=== PATIENT | female | born 1950 | race Caucasian/White ===

== ENCOUNTER 2024-03-22 07:52 | Emergency (ER) | payer OTHER ==
[~2024-03-22] VITALS: Ht 157.5 cm; Wt 68.0 kg
[2024-03-22 08:32] LABS: Hematocrit 35.9 % (33.0-51.0); Hemoglobin 11.3 g/dL (11.5-16.0); Mean Corpuscular HGB 25.7 pg (26.0-34.0); Mean Corpuscular HGB Conc 31.5 g/dL (31.5-36.5); Mean Corpuscular Volume 82 fL (80-100); Mean Platelet Volume 9.8 fL (9.1-12.4); Platelet Count 292 K/mm3 (150-400); RDW Coefficient Variation 16.4 % (11.7-14.2); RDW Standard Deviation 48.5 fL (35.1-46.3); White Blood Cell Count 15.54 K/mm3 (4.00-11.30)
[2024-03-22] MEDS ORDERED: NS 1,000 ML IV SCH (08:45)
[2024-03-22 08:49] LABS: Base Excess Venous 0.6 mmol/L; Bicarbonate Venous 25.4 mmol/L (24.0-30.0); PCO2 Venous 32.4 mmHg (38-42); pH Blood Venous 7.48 (7.34-7.37)
[2024-03-22 08:56] LABS: Albumin, Blood 2.9 g/dL (3.4-5.0); Albumin/Globulin Ratio 0.9 (0.8-1.8); Bilirubin, Total 0.3 mg/dL (0.1-1.0); Bun/Creatinine Ratio 47.4 (12.0-20.0); Creatinine, Blood 0.78 mg/dL (0.40-1.00); Globulin, Blood 3.3 g/dL (2.2-4.0); Magnesium, Blood 2.1 mg/dL (1.6-2.4); Potassium, Blood 3.8 mmol/L (3.5-5.5); Total Protein, Blood 6.2 g/dL (6.4-8.2)
[2024-03-22 08:57] LABS: BASOPHILS PERCENT MAN 0 % (0-2); EOSINOPHILS PERCENT MAN 0 % (0-6); LYMPHOCYTES ABSOLUTE MAN 2.79 K/mm3 (0.84-5.20); LYMPHOCYTES PERCENT MAN 18 % (21-46); METAMYELOCYTE ABSOLUTE MAN 0.31 K/mm3 (0.00-0.00); METAMYELOCYTE PERCENT MAN 2 % (0-0); MONOCYTES ABSOLUTE MAN 0.62 K/mm3 (0.16-1.47); MONOCYTES PERCENT MAN 4 % (4-13); MYELOCYTE ABSOLUTE MAN 0.31 K/mm3 (0.00-0.00); MYELOCYTE PERCENT MAN 2 % (0-0); NEUTROPHILS ABSOLUTE MAN 11.49 K/mm3 (1.96-9.15); SEG NEUTROPHILS PERCENT MAN 74 % (41-73); TOTAL CELLS COUNTED 100
[2024-03-22 09:25] LABS: Influenza A, PCR NEGATIVE (NEGATIVE); Influenza B, PCR NEGATIVE (NEGATIVE); Resp Syncytial Virus, PCR NEGATIVE (NEGATIVE); SARS-Cov-2 (COVID-19) PCR, MMC NEGATIVE (NEGATIVE)
[2024-03-22] MEDS ORDERED: MethylPREDNISolone Sod Succ 125 MG Vial IV ONE (10:15)
[2024-03-22] MEDS ORDERED: Azithromycin 250 MG Tab PO ONE (10:15)
[2024-03-22] MEDS ORDERED: PRED20 PO (10:23)
[2024-03-22] MEDS ORDERED: ALBU90OI INH (10:23)
[2024-03-22] MEDS ORDERED: AZIT250 PO (10:23)
== END 2024-03-22 15:22 | disposition home or self-care (01) ==
LOC: ER 07:52
PROVIDERS: Emergency Medicine
DX: J44.1 Chronic obstructive pulmonary disease with (acute) exacerbation (principal); J18.9 Pneumonia, unspecified organism
CPT/HCPCS: 0241U; 71046; 80053; 82803; 83735; 83880; 84484; 85025; 85379; 93005; 93010; 96361; 96374; 99285-25; A9270; J2919; J7030

== ENCOUNTER 2024-03-23 10:57 | Emergency (ER) | payer OTHER ==
[~2024-03-23] VITALS: Ht 165.1 cm; Wt 90.7 kg
[~2024-03-23 10:57] MED LIST: ALBU90OI INH; AZIT250 PO; PRED20 PO
[2024-03-24] MEDS ORDERED: Ipratropium/Albuterol SulF 2.5-0.5MG/3 ML Amp INH ONE (07:15)
[2024-03-24] MEDS ORDERED: PredniSONE 20 MG Tab PO ONE (08:10)
[2024-03-24] MEDS ORDERED: Azithromycin 250 MG Tab PO ONE (08:10)
[2024-03-24] MEDS ORDERED: ALBU90OI INH (09:52)
[2024-03-24] MEDS ORDERED: PRED20 PO (09:52)
[2024-03-24] MEDS ORDERED: AZIT250 PO (09:52)
[2024-05-20] MEDS ORDERED: NYSTATIN15 GM TOP (03:26)
[2024-05-20] MEDS ORDERED: SERT50 PO (03:34)
[2024-05-20] MEDS ORDERED: PROP10 PO (03:34)
[2024-05-20] MEDS ORDERED: PRED5 PO (03:34)
[2024-05-20] MEDS ORDERED: TRELEGY ELLIPT1 EACH INH (03:35)
[2024-05-20] MEDS ORDERED: ACET325 PO (03:35)
[2024-05-20] MEDS ORDERED: ATOR40TA PO (03:39)
[2024-05-20] MEDS ORDERED: LOSA25 PO (03:40)
[2024-05-20] MEDS ORDERED: MEMA5TAB PO (03:40)
[2024-05-20] MEDS ORDERED: METO25ER PO (03:41)
[2024-05-20] MEDS ORDERED: PANT40 PO (03:42)
[2024-05-20] MEDS ORDERED: FLUTICASONE-SAL12 GM PO (17:20)
[2024-05-21] MEDS ORDERED: IMODIUM A-D2 M1 PO (01:01)
[2024-05-21] MEDS ORDERED: ALBU90OI INH (01:02)
[2024-05-22] MEDS ORDERED: HYDRA25 PO (12:29)
== END 2024-03-24 14:22 | disposition home or self-care (01) ==
LOC: ER 10:57
DX: J44.1 Chronic obstructive pulmonary disease with (acute) exacerbation (principal); Z59.00 Homelessness unspecified; Z79.899 Other long term (current) drug therapy; Z79.52 Long term (current) use of systemic steroids
CPT/HCPCS: 94640; 94664; 99285-25; A9270; J7512

== ENCOUNTER 2024-05-20 03:07 | Observation (INO) | payer MEDICARE, OTHER ==
[~2024-05-20] VITALS: Ht 157.5 cm; Wt 75.0 kg
[2024-05-20] MEDS ORDERED: NYSTATIN15 GM TOP ×2 (03:26)
[2024-05-20 03:27] LABS: BASOPHILS ABSOLUTE AUTO 0.05 K/mm3 (0.00-0.23); BASOPHILS PERCENT AUTO 1 % (0-2); EOSINOPHILS ABSOLUTE AUTO 0.54 K/mm3 (0.00-0.68); EOSINOPHILS PERCENT AUTO 7 % (0-6); Hematocrit 37.5 % (33.0-51.0); Hemoglobin 11.6 g/dL (11.5-16.0); IMMATURE GRAN ABSOLUTE AUTO 0.02 K/mm3 (0.00-0.10); IMMATURE GRAN PERCENT AUTO 0 % (0-1); LYMPHOCYTES ABSOLUTE AUTO 2.66 K/mm3 (0.84-5.20); LYMPHOCYTES PERCENT AUTO 34 % (21-46); MONOCYTES ABSOLUTE AUTO 0.79 K/mm3 (0.16-1.47); MONOCYTES PERCENT AUTO 10 % (4-13); Mean Corpuscular HGB 25.2 pg (26.0-34.0); Mean Corpuscular HGB Conc 30.9 g/dL (31.5-36.5); Mean Corpuscular Volume 82 fL (80-100); Mean Platelet Volume 9.5 fL (9.1-12.4); NEUTROPHILS ABSOLUTE AUTO 3.85 K/mm3 (1.96-9.15); NEUTROPHILS PERCENT AUTO 49 % (41-73); Platelet Count 296 K/mm3 (150-400); RDW Coefficient Variation 15.3 % (11.7-14.2); RDW Standard Deviation 45.5 fL (35.1-46.3); White Blood Cell Count 7.91 K/mm3 (4.00-11.30)
[2024-05-20] MEDS ORDERED: ONELAX10 MG PR (03:29)
[2024-05-20] MEDS ORDERED: Fleet Enema132 ML PR (03:31)
[2024-05-20] MEDS ORDERED: DIAPER RASH TOP (03:31)
[2024-05-20] MEDS ORDERED: GUAI600T33 PO (03:32)
[2024-05-20] MEDS ORDERED: DULCOLAX400 MG/5 M (03:33)
[2024-05-20] MEDS ORDERED: LOPE2C (03:33)
[2024-05-20] MEDS ORDERED: PROP10 PO ×2 (03:34)
[2024-05-20] MEDS ORDERED: PRED5 PO ×2 (03:34)
[2024-05-20] MEDS ORDERED: SERT50 PO ×2 (03:34)
[2024-05-20] MEDS ORDERED: ACET325 PO ×2 (03:35)
[2024-05-20] MEDS ORDERED: TRELEGY ELLIPT1 EACH INH ×2 (03:35)
[2024-05-20] MEDS ORDERED: ALMACONE SUSPE355 ML (03:37)
[2024-05-20] MEDS ORDERED: ATOR40TA PO ×2 (03:39)
[2024-05-20] MEDS ORDERED: MEMA5TAB PO ×2 (03:40)
[2024-05-20] MEDS ORDERED: LOSA25 PO ×2 (03:40)
[2024-05-20] MEDS ORDERED: HYDPAM25 PO (03:40)
[2024-05-20] MEDS ORDERED: METO25ER PO ×2 (03:41)
[2024-05-20] MEDS ORDERED: Nicoderm Cq1 EAC1 TOP (03:41)
[2024-05-20] MEDS ORDERED: PANT40 PO ×2 (03:42)
[2024-05-20 03:47] LABS: Albumin, Blood 3.2 g/dL (3.4-5.0); Albumin/Globulin Ratio 0.8 (0.8-1.8); Bilirubin, Total 0.4 mg/dL (0.1-1.0); Calcium, Blood 9.1 mg/dL (8.5-10.1); Creatinine, Blood 0.72 mg/dL (0.40-1.00); Potassium, Blood 4.1 mmol/L (3.5-5.5); Total Protein, Blood 7.2 g/dL (6.4-8.2)
[2024-05-20 04:02] LABS: CORONAVIRUS COVID-19 AG Negative (NEGATIVE); INFLUENZA A AG Negative (NEGATIVE); INFLUENZA B AG Negative (NEGATIVE)
[2024-05-20] MEDS ORDERED: HyDROXyzine HCl 25 MG Tab PO ONE (04:45)
[2024-05-20] MEDS ORDERED: Ipratropium/Albuterol SulF 2.5-0.5MG/3 ML Amp INH ONE (04:45)
[2024-05-20] MEDS ORDERED: MethylPREDNISolone Sod Succ 125 MG Vial IV ONE (05:35)
[2024-05-20] MEDS ORDERED: CefTRIAXone Sodium 1,000 MG in NS 50 ML IV ONE (05:40)
[2024-05-20] MEDS ORDERED: Azithromycin 500 MG in NS 250 ML IV ONE (05:40)
[2024-05-20] MEDS ORDERED: Acetaminophen 325 MG TABLET PO PRN (05:50)
[2024-05-20] MEDS ORDERED: Ondansetron HCl 2 MG / ML 2ML Vial IV PRN (05:55)
[2024-05-20] MEDS ORDERED: Ipratropium/Albuterol SulF 2.5-0.5MG/3 ML Amp INH SCH (05:55)
[2024-05-20] MEDS ORDERED: FLU VACC TS2024-25(6MOS UP)/PF 45 MCG/0.5 ML SYRINGE IM ONE (05:55)
[2024-05-20 08:56] LABS: Base Excess Venous 3.3 mmol/L; Bicarbonate Venous 26.6 mmol/L (24.0-30.0); PCO2 Venous 50.7 mmHg (38-42); pH Blood Venous 7.36 (7.34-7.37)
[2024-05-20] MEDS ORDERED: PredniSONE 20 MG Tab PO SCH (09:00)
[2024-05-20] MEDS ORDERED: Docusate Sodium 100 MG Cap PO SCH (09:00)
[2024-05-20] MEDS ORDERED: GuaiFENesin 600 MG TabCR PO SCH (09:00)
[2024-05-20 16:03] LABS: PCO2 Venous 30.9 mmHg (38-42); pH Blood Venous 7.47 (7.34-7.37)
[2024-05-20 16:57] VITALS: BP 144/69
[2024-05-20] MEDS ORDERED: FLUTICASONE-SAL12 GM PO ×2 (17:20)
--- NOTE | 2024-05-20 17:42 | NUR ---
SHIFT SUMMARY PT A&OX3-4, VSS, ON 2L O2 NC, TOLERATING PO, AND DENIED PAIN. NO ACUTE CHANGES FROM ADMIT ASSESSMENT. CALL LIGHT WITHIN REACH AND PT ABLE TO MAKE NEEDS KNOWN.
[2024-05-20 19:10] LABS: Adenovirus Not Detected (NOT DETECT); Bordetella pertussis Not Detected (NOT DETECT); Chlamydophila pneumoniae Not Detected (NOT DETECT); Coronavirus 229E Not Detected (NOT DETECT); Coronavirus HKU1 Not Detected (NOT DETECT); Coronavirus NL63 Not Detected (NOT DETECT); Coronavirus OC43 Not Detected (NOT DETECT); Human Metapneumovirus Not Detected (NOT DETECT); Human Rhinovirus/Enterovirus Not Detected (NOT DETECT); Influenza A/2009-H1 Not Detected (NOT DETECT); Influenza A/H1 Not Detected (NOT DETECT); Influenza A/H3 Not Detected (NOT DETECT); Influenza B Not Detected (NOT DETECT); Mycoplasma pneumoniae Not Detected (NOT DETECT); Parainfluenza Virus 1 Not Detected (NOT DETECT); Parainfluenza Virus 2 Not Detected (NOT DETECT); Parainfluenza Virus 3 Not Detected (NOT DETECT); Parainfluenza Virus 4 Not Detected (NOT DETECT); Respiratory Syncytial Virus Not Detected (NOT DETECT); SARS-Cov-2 (COVID-19), BioFire Not Detected (NOT DETECT)
[2024-05-20 19:12] VITALS: BP 129/79
[2024-05-21] MEDS ORDERED: IMODIUM A-D2 M1 PO ×2 (01:01)
[2024-05-21] MEDS ORDERED: ALBU90OI INH ×2 (01:02)
--- NOTE | 2024-05-21 04:10 | NUR ---
A&OX3, USING CALL LIGHT APPROPIATELY, VSS, REMAINS ON 2L O2 (RA BASE) BECOMES SOB W/ANY ACTIVITY, DENIES PAIN, CONTINENT TO BSC W/1 ASSIST, APPEARS TO BE SLEEPING AT THIS TIME, CALL LIGHT IN REACH, BED ALARM ACTIVE, WILL CONT TO MONITOR UNTIL REPORT GIVEN TO ONCOMING NURSE.
[2024-05-21 05:00] VITALS: BP 114/64
[2024-05-21 08:19] VITALS: BP 115/75
[2024-05-21] MEDS ORDERED: Enoxaparin 40 MG/0.4 ML SYR SC SCH (09:00)
[2024-05-21] MEDS ORDERED: Mometasone/Formoterol MDI 200/5 mcg 13 GM INH SCH (11:10)
[2024-05-21] MEDS ORDERED: Nystatin 100,000 Unit/GM CREAM 15 GM TOP PRN (11:10)
[2024-05-21] MEDS ORDERED: HyDROXyzine HCl 25 MG Tab PO PRN (12:30)
[2024-05-21] MEDS ORDERED: LORazepam 0.5 MG Tab PO PRN (14:00)
[2024-05-21] MEDS ORDERED: LORazepam 0.5 MG Tab PO ONE (14:00)
[2024-05-21 16:42] VITALS: BP 113/58
--- NOTE | 2024-05-21 18:15 | NUR ---
SHIFT SUMMARY PT A&OX2-3. PT HAS CONFUSION, DIDN T KNOW DAY OR LOCATION. PT ADMITTED DUE TO ACUTE HYPOXIC RESP. FAILURE. PT ON ROOM AIR. PT REPORTS SELDOM SOB. PT HAS COUGH. PT EATS WELL. PT USES BSC. PT HAS TREMORS, GAVE ATIVAN, AND TRIED ATARAX FOR TREMORS, PT STILL HASN T HAD MUCH RELIEF. BED IN LOWEST POSITION, CALL LIGHT IN REACH. PT HAS LOW BACK PAIN, TREATED WITH TYLENOL.
[2024-05-21 19:34] VITALS: BP 137/60
[2024-05-21] MEDS ORDERED: Atorvastatin 40 MG Tab PO SCH (21:00)
[2024-05-22 01:11] VITALS: BP 124/69
--- NOTE | 2024-05-22 03:57 | NUR ---
A&OX3, VSS, REMAINED ON RA T/O THE NIGHT, LAST O2=93%, DENIED PAIN, SLEPT T/O THE NIGHT AND SLEEPING AT THIS TIME, CALL LIGHT IN REACH, BED ALARM ACTIVE, WILL CONT TO MONITOR UNTIL REPORT GIVEN TO ONCOMING NURSE.
[2024-05-22 05:40] LABS: BASOPHILS ABSOLUTE AUTO 0.03 K/mm3 (0.00-0.23); BASOPHILS PERCENT AUTO 0 % (0-2); EOSINOPHILS PERCENT AUTO 0 % (0-6); Hematocrit 31.5 % (33.0-51.0); Hemoglobin 9.9 g/dL (11.5-16.0); IMMATURE GRAN ABSOLUTE AUTO 0.06 K/mm3 (0.00-0.10); IMMATURE GRAN PERCENT AUTO 1 % (0-1); LYMPHOCYTES ABSOLUTE AUTO 2.31 K/mm3 (0.84-5.20); LYMPHOCYTES PERCENT AUTO 19 % (21-46); MONOCYTES ABSOLUTE AUTO 1.11 K/mm3 (0.16-1.47); MONOCYTES PERCENT AUTO 9 % (4-13); Mean Corpuscular HGB 25.1 pg (26.0-34.0); Mean Corpuscular HGB Conc 31.4 g/dL (31.5-36.5); Mean Corpuscular Volume 80 fL (80-100); Mean Platelet Volume 9.7 fL (9.1-12.4); NEUTROPHILS ABSOLUTE AUTO 8.45 K/mm3 (1.96-9.15); NEUTROPHILS PERCENT AUTO 71 % (41-73); Platelet Count 285 K/mm3 (150-400); RDW Coefficient Variation 15.6 % (11.7-14.2); RDW Standard Deviation 45.4 fL (35.1-46.3); Red Blood Cell Count 3.94 M/mm3 (3.80-5.20); White Blood Cell Count 11.96 K/mm3 (4.00-11.30)
[2024-05-22] MEDS ORDERED: Pantoprazole Sodium 40 MG Tab PO SCH (06:00)
[2024-05-22 06:22] LABS: Albumin, Blood 2.9 g/dL (3.4-5.0); Albumin/Globulin Ratio 0.8 (0.8-1.8); Bilirubin, Total 0.3 mg/dL (0.1-1.0); Bun/Creatinine Ratio 24.4 (12.0-20.0); Calcium, Blood 8.7 mg/dL (8.5-10.1); Creatinine, Blood 0.74 mg/dL (0.40-1.00); Globulin, Blood 3.5 g/dL (2.2-4.0); Potassium, Blood 3.9 mmol/L (3.5-5.5); Total Protein, Blood 6.4 g/dL (6.4-8.2)
[2024-05-22 07:57] VITALS: BP 147/66
[2024-05-22] MEDS ORDERED: Losartan Potassium 25 MG Tab PO SCH (09:00)
[2024-05-22] MEDS ORDERED: Memantine HCL 5 MG Tab PO SCH (09:00)
[2024-05-22] MEDS ORDERED: Sertraline HCl 50 MG Tab PO SCH (09:00)
[2024-05-22] MEDS ORDERED: Metoprolol Succinate 25 MG TABCR PO SCH (09:00)
[2024-05-22] MEDS ORDERED: HYDRA25 PO ×2 (12:29)
--- NOTE | 2024-05-22 12:43 | NUR ---
DISCHARGE PT DISCHARGED BACK TO [facility]IA [facility]. REPORT GIVEN TO [facility] RN. ALL BELONGINGS SENT WITH PT.
== END 2024-05-22 12:26 ==
LOC: ER 03:07 → MEDS 03:08 → ERHOLD 03:08 → MEDS 16:47
PROVIDERS: Emergency Medicine; Family Medicine; ADMIT Student in an Organized Health Care Education/Training Program
DX: J96.01 Acute respiratory failure with hypoxia (principal); J44.1 Chronic obstructive pulmonary disease with (acute) exacerbation; I10 Essential (primary) hypertension; K21.9 Gastro-esophageal reflux disease without esophagitis; F41.9 Anxiety disorder, unspecified; F03.90 Unspecified dementia, unspecified severity, without behavioral disturbance, psychotic disturbance, mood disturbance, and anxiety; Z87.891 Personal history of nicotine dependence; Z79.899 Other long term (current) drug therapy
CPT/HCPCS: 0202U; 36415; 71045; 80053; 82803; 83605; 84145; 84484; 85025; 87040; 87428-QW; 93005; 93010; 94640; 94664; 94760; 94762; 96365; 96367; 96372; 96375; 99285-25; A9270; G0378; J0456; J0696; J1650; J2919; J7050; J7512

== ENCOUNTER 2024-05-23 20:38 | Emergency (ER) | payer MEDICARE, OTHER ==
[~2024-05-23] VITALS: Ht 167.6 cm; Wt 65.8 kg
[~2024-05-23 20:38] MED LIST changes: +ACET325 PO; +ALMACONE SUSPE355 ML; +ATOR40TA PO; +DIAPER RASH TOP; +DULCOLAX400 MG/5 M; +FLUTICASONE-SAL12 GM PO; +Fleet Enema132 ML PR; +GUAI600T33 PO; +HYDPAM25 PO; +HYDRA25 PO; +IMODIUM A-D2 M1 PO; +LOPE2C; +LOSA25 PO; +MEMA5TAB PO; +METO25ER PO; +NYSTATIN15 GM TOP; +Nicoderm Cq1 EAC1 TOP; +ONELAX10 MG PR; +PANT40 PO; +PRED5 PO; +PROP10 PO; +SERT50 PO; +TRELEGY ELLIPT1 EACH INH
[2024-05-23] MEDS ORDERED: Albuterol 2.5 MG/3 ML VIAL INH SCH (20:55)
[2024-05-23] MEDS ORDERED: MethylPREDNISolone Sod Succ 125 MG Vial IV ONE (21:40)
[2024-05-23] MEDS ORDERED: Naproxen 250 MG TAB PO ONE (21:45)
== END 2024-05-24 00:27 | disposition home or self-care (01) ==
LOC: ER 20:38
DX: J44.1 Chronic obstructive pulmonary disease with (acute) exacerbation (principal); I10 Essential (primary) hypertension; Z79.52 Long term (current) use of systemic steroids; Z79.51 Long term (current) use of inhaled steroids; Z79.899 Other long term (current) drug therapy
CPT/HCPCS: 71045; 93005; 93010; 94644; 94664; 96374; 99285-25; A9270; J2919

== ENCOUNTER 2024-05-26 18:21 | Inpatient (IN) | payer MEDICARE, OTHER ==
[~2024-05-26] VITALS: Ht 157.5 cm; Wt 68.0 kg
[2024-05-26 18:50] LABS: BASOPHILS ABSOLUTE AUTO 0.03 K/mm3 (0.00-0.23); BASOPHILS PERCENT AUTO 0 % (0-2); EOSINOPHILS ABSOLUTE AUTO 0.12 K/mm3 (0.00-0.68); EOSINOPHILS PERCENT AUTO 1 % (0-6); Hematocrit 37.5 % (33.0-51.0); Hemoglobin 11.8 g/dL (11.5-16.0); IMMATURE GRAN ABSOLUTE AUTO 0.12 K/mm3 (0.00-0.10); IMMATURE GRAN PERCENT AUTO 1 % (0-1); LYMPHOCYTES ABSOLUTE AUTO 1.98 K/mm3 (0.84-5.20); LYMPHOCYTES PERCENT AUTO 17 % (21-46); MONOCYTES ABSOLUTE AUTO 1.47 K/mm3 (0.16-1.47); MONOCYTES PERCENT AUTO 13 % (4-13); Mean Corpuscular HGB 25.2 pg (26.0-34.0); Mean Corpuscular HGB Conc 31.5 g/dL (31.5-36.5); Mean Corpuscular Volume 80 fL (80-100); Mean Platelet Volume 10.3 fL (9.1-12.4); NEUTROPHILS ABSOLUTE AUTO 8.04 K/mm3 (1.96-9.15); NEUTROPHILS PERCENT AUTO 68 % (41-73); Platelet Count 320 K/mm3 (150-400); RDW Coefficient Variation 15.7 % (11.7-14.2); RDW Standard Deviation 44.8 fL (35.1-46.3); Red Blood Cell Count 4.68 M/mm3 (3.80-5.20); White Blood Cell Count 11.76 K/mm3 (4.00-11.30)
[2024-05-26] MEDS ORDERED: Ipratropium Bromide INH 0.02% 0.5 mg/2.5ML Vial INH SCH (19:10)
[2024-05-26] MEDS ORDERED: MethylPREDNISolone Sod Succ 125 MG Vial IV ONE (19:10)
[2024-05-26] MEDS ORDERED: Albuterol 2.5 MG/3 ML VIAL INH SCH (19:10)
[2024-05-26 19:12] LABS: Albumin, Blood 3.2 g/dL (3.4-5.0); Albumin/Globulin Ratio 0.8 (0.8-1.8); Bilirubin, Total 0.3 mg/dL (0.1-1.0); Bun/Creatinine Ratio 22.7 (12.0-20.0); Calcium, Blood 9.1 mg/dL (8.5-10.1); Creatinine, Blood 0.79 mg/dL (0.40-1.00); Globulin, Blood 4.1 g/dL (2.2-4.0); Potassium, Blood 3.9 mmol/L (3.5-5.5); Total Protein, Blood 7.3 g/dL (6.4-8.2)
[2024-05-26] MEDS ORDERED: Azithromycin 500 MG in NS 250 ML IV ONE (20:45)
[2024-05-26] MEDS ORDERED: Ipratropium/Albuterol SulF 2.5-0.5MG/3 ML Amp INH SCH (21:50)
[2024-05-26] MEDS ORDERED: Guaifenesin/Dextromethorphan Syrup 5 ML UDC PO PRN (21:55)
[2024-05-26] MEDS ORDERED: Magnesium Hydroxide Conc 10 ML UDC PO PRN (21:55)
[2024-05-26] MEDS ORDERED: HydrALAZINE HCl 20 MG / ML 1ML Vial IV PRN (21:55)
[2024-05-26] MEDS ORDERED: GuaiFENesin 600 MG TabCR PO SCH (22:00)
[2024-05-26] MEDS ORDERED: FLU VACC TS2024-25(6MOS UP)/PF 45 MCG/0.5 ML SYRINGE IM ONE (22:00)
[2024-05-26] MEDS ORDERED: MethylPREDNISolone Sod Succ 125 MG Vial IV SCH (22:00)
[2024-05-26] MEDS ORDERED: Lactobacil 2-S.Thermo-Bifido 1 1 Cap PO SCH (22:00)
[2024-05-26] MEDS ORDERED: LevoFLOXacin 750 MG/D5W 150ML 150 ML IV SCH (22:05)
[2024-05-26 23:15] VITALS: BP 109/65
--- NOTE | 2024-05-26 23:16 | NUR ---
ADMIT NOTE HANDOFF RECEIVED FROM RETAIL DIRECTOR JG. PT ARRIVED TO FLOOR VIA [facility]. SHE IS ON 2 LPM O2 VIA TX NOW. PERSONAL POSSESSIONS ARE WITH PATIENT. CALL BUTTON WITHIN REACH. BED ALARM IS ACTIVE. TELEMETRY HAS BEEN ORDERED.
[2024-05-26] MEDS ORDERED: Albuterol 2.5 MG/3 ML VIAL INH PRN (23:20)
[2024-05-27] MEDS ORDERED: Acetaminophen 325 MG TABLET PO PRN (02:45)
[2024-05-27 02:47] VITALS: BP 138/65
--- NOTE | 2024-05-27 04:09 | NUR ---
SHIFT SUMMARY ADMITTED FOR DYSPNEA/SOB. COPD EXACERBATION. FULL CODE. STEROIDS AND ANTIB RX ARE SCHEDULED. RT TX'S ARE ORDERED. SHE IS ON 3 LPM O2 AT THIS TIME. RA IS HER BASELINE. CARDIAC DIET. TELEMETRY: NSR @ 96 BPM. SHE IS A&O X4. STANDBY ASSIST TO BSC. SHE WAS RECENTLY DISCHARGED FROM HERE TO [facility] ON 05/22/24 FOR THE SAME.
[2024-05-27] MEDS ORDERED: Pantoprazole Sodium 20 MG Tab PO SCH (06:00)
[2024-05-27 07:26] VITALS: BP 146/104
--- NOTE | 2024-05-27 07:49 | NUR ---
CALLED DR YIP- NOTED ON AMA ASSESSMENT THAT THE PT HAD A C/O N/T IN BILATERAL FEET AND TOES, SHE STATES THIS IS NOT BASELINE. RIGHT PEDAL FLEXION AND EXTENTION IS SLIGHTLY WEAKER THAN THE LEFT. DORSAL PEDAL PULSE PALPABLE IN THE LEFT NOT THE RIGHT, ANKLE/BRACHIAL PULSE IS PALPABLE BILATERALLY, UNABLE TO LOCATE DORSAL PEDAL PULSE ON THE RIGHT WITH THE DOPPLER. BOTH FEET ARE WARM CAP REFILL ON THE LEFT IS LESS THAN 3 SECONDS BUT 3-4 SECONDS ON THE RIGHT.
--- NOTE | 2024-05-27 07:57 | NUR ---
NOTED ON ASSESSMENT- PT IS VERY TREMULOUS, UNABLE TO DETERMINE WHEN THIS STARTED AND MAY BE RELATED TO ALBUTEROL TREATMENTS. RESP RATE IS 24-28 GRUNTING, PURSED LIPS, AND ACCESSORY MUSCLE USE NOTED. PT DOES NOT APPEAR TO BE IN DISTRESS AT THIS TIME BUT DOSES HAVE INCREASED WORK OF BREATHING. PT ON 3L O2 VIA NC AND SATS ARE 96%. 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 INSPIRATORY AND EXPIRATORY WHEEZES NOTED WITH TIGHT DIM BASES. CALLED RT FOR ASSISTANCE IN TREATING THE PT SYMPTOMS.
[2024-05-27] MEDS ORDERED: Polyethylene Glycol 3350 17 gm PO PRN (08:05)
[2024-05-27] MEDS ORDERED: Azithromycin 250 MG Tab PO SCH (09:00)
[2024-05-27] MEDS ORDERED: Enoxaparin 40 MG/0.4 ML SYR SC SCH (09:00)
--- NOTE | 2024-05-27 09:26 | NUR ---
CALLED [facility]- PT RESIDES AT [facility], CALLED THEM AND REQUESTED A MED LIST TO BE FAXED TO US, THE PT HOME MEDS ARE NOT YET RECONCILED SO HOME MEDS ARE NOT RESUMED AT THIS TIME. THEY AGREED TO FAX A MED LIST OVER, WILL RECONCILE HOME MEDS ONCE RECIEVED
[2024-05-27] MEDS ORDERED: Budesonide 0.25 MG / 2 ML RESP INH SCH (10:35)
[2024-05-27] MEDS ORDERED: ALPRAZolam 0.25 MG Tab PO PRN (10:40)
[2024-05-27] MEDS ORDERED: Mometasone/Formoterol MDI 200/5 mcg 13 GM INH SCH (11:05)
[2024-05-27] MEDS ORDERED: HYDHCL25 PO (12:38)
[2024-05-27] MEDS ORDERED: Metoprolol Succinate 25 MG TABCR PO SCH (12:45)
[2024-05-27 12:49] VITALS: BP 133/48
[2024-05-27 14:40] VITALS: BP 129/76
--- NOTE | 2024-05-27 14:51 | NUR ---
TYLENOL GIVEN FOR HEADACHE AND ICE BAG PLACED ON FOREHEAD
--- NOTE | 2024-05-27 16:43 | NUR ---
SHIFT SUMMARY- PT ALERT AND ORIENTED TO SELF, PLACE AND SITUATION. SHE WAS NOTED TO HAVE SEVERE TREMMORS EARLIER TODAY, SHE WAS MEDICATED WITH XANAX EARLIER IN THE SHIFT WITH NO REAL IMPROVEMENT. PT HAD A VASCULAR STUDY DONE AND AFTER THAT SHE WENT TO SLEEP. PT IS CURRENTLY LAYING IN BED, NO VISIBLE TREMORS NOTED AT THIS TIME. PT APPEARS TO BE RELAXED, HER BREATHING APPEARS EVEN, SHALLOW AND MORE RAPID THAN IS AVERAGE, BUT NO ACCESSORY MUSCLES ARE BEING USED AND SHE DOES NOT APPEAR TO BE IN ANY DISTRESS. PT IS SOMETIMES CONTINENE PER REPORT, HOWEVER TODAY SHE HAS REMAINED INCONTINENT FOE THE MAJORITY OF THE DAY. SHE HAS ATTENDS IN PLACE. SHE WALKED FOR A SMALL AMOUNT OF TIME WITH THERAPY IN THE ROOM, BUT HER HR BECAME TACHY UP TO THE 140'S. NOTIFIED, MED REC NEVER RECIEVED FROM [facility] REQUESTED. CALLED AND LEFT A VOICEMAIL AFTER TALKING TO STAFF, WITH NO LIST AVAILABLE FROM THE PT FACILITY, HOME MED REC WAS COMPLETED WITH THE DISCHARGE MED LIST FROM WHEN SHE WAS DISCHARGED ON THE April. NOTIFIED THE MED REC WAS COMPLETED AND HOME MEDS WERE ORDERED. PT RECIEVED PO METOPROLOL HOME DOSE, HR IS NOW SINUS AT 110 WITH FREQUENT PAC'S. PT IN BED, CALL LIGHT IN REACH, BED ALARM ON FOR SAFETY, NO S&S OF DISTRESS.
[2024-05-27 20:20] VITALS: BP 140/118
[2024-05-27] MEDS ORDERED: Famotidine 20 MG Tab PO SCH (21:00)
[2024-05-27] MEDS ORDERED: MethylPREDNISolone Sod Succ 125 MG Vial IV SCH (21:00)
[2024-05-27] MEDS ORDERED: Docusate Sodium/Senna 1 Tab PO SCH (21:00)
[2024-05-28 02:22] VITALS: BP 129/73
[2024-05-28 06:11] LABS: Hematocrit 33.2 % (33.0-51.0); Hemoglobin 10.3 g/dL (11.5-16.0); Mean Corpuscular HGB 24.8 pg (26.0-34.0); Mean Corpuscular Volume 80 fL (80-100); Mean Platelet Volume 9.8 fL (9.1-12.4); Platelet Count 306 K/mm3 (150-400); RDW Coefficient Variation 15.9 % (11.7-14.2); RDW Standard Deviation 45.7 fL (35.1-46.3); Red Blood Cell Count 4.15 M/mm3 (3.80-5.20); White Blood Cell Count 17.65 K/mm3 (4.00-11.30)
[2024-05-28 06:44] LABS: Albumin, Blood 2.7 g/dL (3.4-5.0); Anion Gap 9 mmol/L (3-11); Blood Urea Nitrogen 20 mg/dL (8-24); Bun/Creatinine Ratio 29.2 (12.0-20.0); CO2, Blood 26 mmol/L (21-32); Calcium, Blood 8.9 mg/dL (8.5-10.1); Chloride, Blood 108 mmol/L (98-108); Creatinine, Blood 0.68 mg/dL (0.40-1.00); Glomerular Filtration Rate 92 (60-); Glucose, Blood 214 mg/dL (70-99); Magnesium, Blood 2.3 mg/dL (1.6-2.4); Phosphorus, Blood 3.5 mg/dL (2.5-4.9); Sodium, Blood 139 mmol/L (136-145)
[2024-05-28 08:04] VITALS: BP 144/63
[2024-05-28] MEDS ORDERED: Memantine HCL 5 MG Tab PO SCH (09:00)
[2024-05-28] MEDS ORDERED: Sertraline HCl 50 MG Tab PO SCH (09:00)
[2024-05-28] MEDS ORDERED: Metoprolol Succinate 25 MG TABCR PO SCH (09:00)
[2024-05-28] MEDS ORDERED: Losartan Potassium 25 MG Tab PO SCH (09:00)
[2024-05-28 15:43] VITALS: BP 130/64
[2024-05-28 16:39] LABS: Base Excess Venous 0.2 mmol/L; Bicarbonate Venous 24.1 mmol/L (24.0-30.0); PCO2 Venous 50.4 mmHg (38-42); pH Blood Venous 7.32 (7.34-7.37)
--- NOTE | 2024-05-28 18:25 | NUR ---
SHIFT SUMMARY PT AOX3-4, SBA TO THE BSC. MEDICATED FOR LOCKWOOD PER THE EMAR. PT REMAINS ON 3L, RA AT BASELINE. NO CP OR PRESSURE THIS SHIFT. PT CALLS AND MAKES HER NEEDS KNOWN. PT REPOSITIONS SELF IN BED, UP TO THE CHAIR MOST OF THE DAY. CALL LIGHT WITHIN REACH, BED LOCKED AND IN THE LOWEST POSITION. WILL REPORT TO ONCOMING NURSE.
[2024-05-28 19:19] VITALS: BP 110/55
[2024-05-29] MEDS ORDERED: Calcium Carbonate 500 MG Tab Chew PO PRN (01:30)
[2024-05-29 02:07] VITALS: BP 159/75
[2024-05-29] MEDS ORDERED: Ketorolac Tromethamine 15mg Vial IV ONE (02:15)
--- NOTE | 2024-05-29 03:00 | NUR ---
0215- PT WAS COMPLAINING OF IDIGESTION. PT GIVEN TUMS WITH LITTLE RELIEF. PT REPORTED CX DISCOMFORT WAS RADIATING TO R CX. EKG PERFORMED. RESULTS SAME ER EKG. DR ADEN CALLED AND NOTIFIED. OT DOSE TORADOL ORDERED. PT REPORTS RELIEF.
--- NOTE | 2024-05-29 05:39 | NUR ---
NOC SUMMARY- PT TOLERATED BIPAP. PT DID HAVE A PERIOD OF CX PAIN. EKG PERFORMED AND DR ADEN WAS NOTIFIED. PT PAIN RESOLVED WITH TUMS AND TORADOL. PT HAS BEEN RESTING QUIETLY. PT BRIEF CHANGED NEEDED. PT REMAINS ON O2 WHEN NOT ON BIPAP. CALL LIGHT IN REACH AND BED ALARM ON FOR SAFETY.
[2024-05-29 05:58] LABS: Base Excess Venous 5.7 mmol/L; PCO2 Venous 45.1 mmHg (38-42); pH Blood Venous 7.43 (7.34-7.37)
[2024-05-29 06:06] LABS: Hematocrit 33.5 % (33.0-51.0); Hemoglobin 10.4 g/dL (11.5-16.0); Mean Corpuscular HGB 24.8 pg (26.0-34.0); Mean Corpuscular Volume 80 fL (80-100); Mean Platelet Volume 10.1 fL (9.1-12.4); Platelet Count 331 K/mm3 (150-400); RDW Coefficient Variation 15.9 % (11.7-14.2); RDW Standard Deviation 45.5 fL (35.1-46.3); White Blood Cell Count 17.77 K/mm3 (4.00-11.30)
[2024-05-29 06:31] LABS: Bun/Creatinine Ratio 32.3 (12.0-20.0); Calcium, Blood 8.7 mg/dL (8.5-10.1); Creatinine, Blood 0.81 mg/dL (0.40-1.00); Potassium, Blood 4.6 mmol/L (3.5-5.5)
[2024-05-29 07:40] VITALS: BP 148/82
[2024-05-29] MEDS ORDERED: Metoprolol Tartrate 1 MG/ML 5 ML VIAL IV STA (11:31)
[2024-05-29] MEDS ORDERED: LORazepam 2 MG/ML 1ML Injection IV STA (11:31)
[2024-05-29 11:59] LABS: Base Excess Venous 0.7 mmol/L; Bicarbonate Venous 25.1 mmol/L (24.0-30.0); PCO2 Venous 39.5 mmHg (38-42); pH Blood Venous 7.42 (7.34-7.37)
[2024-05-29 12:41] LABS: Phosphorus, Blood 2.9 mg/dL (2.5-4.9); Thyroid Stimulating Hormone 0.244 uIU/mL (0.360-4.800)
[2024-05-29] MEDS ORDERED: NS 1,000 ML IV SCH (12:45)
[2024-05-29 15:18] VITALS: BP 133/78
[2024-05-29 16:32] LABS: Free Thyroxine 2.37 ng/dL (0.70-1.60)
[2024-05-29 16:34] LABS: Triiodothyronine, Free 1.97 pg/mL (2.18-3.98)
[2024-05-29] MEDS ORDERED: CefTRIAXone Sodium 1,000 MG in NS 100 ML IV SCH (17:00)
--- NOTE | 2024-05-29 17:56 | NUR ---
SHIFT SUMMARY PT AOX4, SBA TO THE BS. BR AT THIS TIME, PT BECAME INCREDIBLY SHORT OF BREATH. RESPIRATORY THERAPY WAS CONTACTED, BIPAP WAS PUT ON THE PT AND A BREATHING TREATMENT ADMINISTERED. PT REPORTED LITTLE RELIEF. CT PE SCAN ORDERED AND LABS STAT. PT WAS ADMINISTERED ATIVAN AND METOPROLOL PER THE EMAR TO IMPROVE ANXIETY AND PT'S HR. BOTH MEDICATIONS PROVIDED GREAT RELIEF AND THE PT IMPROVED. SHE HAS BEEN ON THE NC AND RESPONDING WELL. PT IS ON BR AT THIS TIME TO PREVENT ANOTHER SIMILAR INCIDENT. PURWICK IN PLACE PER THE CHARGE APPROVAL. PT REPOSITIONED THROUGHOUT THE SHIFT. SHE CALLS AND MAKES HER NEEDS KNOWN. ONLY EVENT PER TELE WAS THE INCIDENT ABOVE WHEN STEPHAN, ELEVATOR ADJUSTER, REPORTED AN ELEVATION IN THE PT'S HR. NO EVENTS AFTER THAT TIME. CALL LIGHT WITHIN REACH, BED LOCKED AND IN THE LOWEST POSITION. WILL REPORT TO ONCOMING NURSE.
[2024-05-29 20:42] VITALS: BP 137/78
[2024-05-30 05:47] LABS: Base Excess Venous 5.3 mmol/L; Bicarbonate Venous 28.3 mmol/L (24.0-30.0); pH Blood Venous 7.37 (7.34-7.37)
[2024-05-30 05:58] VITALS: BP 159/73
[2024-05-30 06:04] LABS: BASOPHILS ABSOLUTE AUTO 0.03 K/mm3 (0.00-0.23); BASOPHILS PERCENT AUTO 0 % (0-2); EOSINOPHILS PERCENT AUTO 0 % (0-6); Hematocrit 34.8 % (33.0-51.0); Hemoglobin 10.7 g/dL (11.5-16.0); IMMATURE GRAN ABSOLUTE AUTO 0.13 K/mm3 (0.00-0.10); IMMATURE GRAN PERCENT AUTO 1 % (0-1); LYMPHOCYTES ABSOLUTE AUTO 0.62 K/mm3 (0.84-5.20); LYMPHOCYTES PERCENT AUTO 4 % (21-46); MONOCYTES ABSOLUTE AUTO 0.63 K/mm3 (0.16-1.47); MONOCYTES PERCENT AUTO 4 % (4-13); Mean Corpuscular HGB 24.9 pg (26.0-34.0); Mean Corpuscular HGB Conc 30.7 g/dL (31.5-36.5); Mean Corpuscular Volume 81 fL (80-100); Mean Platelet Volume 9.9 fL (9.1-12.4); NEUTROPHILS ABSOLUTE AUTO 12.99 K/mm3 (1.96-9.15); NEUTROPHILS PERCENT AUTO 90 % (41-73); Platelet Count 341 K/mm3 (150-400); RDW Coefficient Variation 15.8 % (11.7-14.2); RDW Standard Deviation 46.5 fL (35.1-46.3)
--- NOTE | 2024-05-30 06:11 | NUR ---
SHIFT SUMMARY PT A&Ox3/4 AND PLEASANT. NO C/O PAIN. ONE TIME BAG OF NS COMPLETED AROUND 1999. PT ON 2L OF OXYGEN AND SATING >95% VIA CONTINIOUS PULSE OX. PT ON TELE AND RUNNING SINUS TACH @ 106. RT AT BEDSIDE FOR BREATHING TX's. PT REFUSED TO WEAR BIPAP DURING THE NIGHT. ABLE TO SLEEP MOST OF THE NIGHT. VSS. BED ALARM ON BED IN LOWEST POSITION AND CALL LIGHT IN REACH.
[2024-05-30 06:39] LABS: Bun/Creatinine Ratio 30.9 (12.0-20.0); Calcium, Blood 9.1 mg/dL (8.5-10.1); Creatinine, Blood 0.81 mg/dL (0.40-1.00); Potassium, Blood 4.8 mmol/L (3.5-5.5)
[2024-05-30 06:57] VITALS: BP 139/70
[2024-05-30 15:04] VITALS: BP 132/82
--- NOTE | 2024-05-30 18:38 | NUR ---
SHIFT SUMMARY PATIENT ALERT AND INTERACTIVE. PATIENT ABLE TO MAKE NEEDS KNOWN. PATIENT RESISTANT ABOUT WEARING CPAP. PATIENT REPEATEDLY EDUCATED ON RISKS WITH CURRENT RESPIRATORY STATUS. PATIENT WILLING TO WEAR CPAP FOR SHORT PERIODS BETWEEN MEALS. PATIENT MEDICATED WITH XANAX X1 TO HELP TOLERATE CPAP. PALIATIVE CARE CONSULTED SINCE PATIENT RESISTANT ABOUT FOLLOWING PLAN OF CARE AND CURRENTLY FULL CODE.
[2024-05-30 19:23] VITALS: BP 146/69
--- NOTE | 2024-05-31 05:53 | NUR ---
SHIFT SUMMARY PT ANXIOUS AT START OF SHIFT, STATED THERE WAS NO SPECIFIC REASON JUST GERALIZED ANX. MEDICATED PER EMAR WITH GOOD EFFECT. PT AGREEABLE TO WEAR BIPAP AT HS AND WAS ABLE TO TOLERATE IT FOR ABOUT 4 HRS. PT CONTINUING ON 3L OF OXYGEN WHEN NOT ON BIPAP. NO EVENTS ON TELE. DENIED ANY PAIN. VSS. BED IN LOWEST POSITION AND CALL LIGHT IN REACH.
[2024-05-31 05:58] VITALS: BP 104/93
[2024-05-31 06:15] LABS: BASOPHILS ABSOLUTE AUTO 0.02 K/mm3 (0.00-0.23); BASOPHILS PERCENT AUTO 0 % (0-2); EOSINOPHILS PERCENT AUTO 0 % (0-6); Hematocrit 33.8 % (33.0-51.0); Hemoglobin 10.6 g/dL (11.5-16.0); IMMATURE GRAN ABSOLUTE AUTO 0.14 K/mm3 (0.00-0.10); IMMATURE GRAN PERCENT AUTO 1 % (0-1); LYMPHOCYTES ABSOLUTE AUTO 0.87 K/mm3 (0.84-5.20); LYMPHOCYTES PERCENT AUTO 7 % (21-46); MONOCYTES ABSOLUTE AUTO 0.52 K/mm3 (0.16-1.47); MONOCYTES PERCENT AUTO 4 % (4-13); Mean Corpuscular HGB 25.1 pg (26.0-34.0); Mean Corpuscular HGB Conc 31.4 g/dL (31.5-36.5); Mean Corpuscular Volume 80 fL (80-100); NEUTROPHILS PERCENT AUTO 87 % (41-73); Platelet Count 307 K/mm3 (150-400); RDW Coefficient Variation 15.9 % (11.7-14.2); RDW Standard Deviation 46.4 fL (35.1-46.3); Red Blood Cell Count 4.22 M/mm3 (3.80-5.20); White Blood Cell Count 12.05 K/mm3 (4.00-11.30)
[2024-05-31 07:02] LABS: Bun/Creatinine Ratio 35.8 (12.0-20.0); Calcium, Blood 8.5 mg/dL (8.5-10.1); Creatinine, Blood 0.81 mg/dL (0.40-1.00); Potassium, Blood 4.5 mmol/L (3.5-5.5)
[2024-05-31 07:22] VITALS: BP 147/92
[2024-05-31] MEDS ORDERED: HyDROXyzine HCl 25 MG Tab PO PRN (08:10)
[2024-05-31] MEDS ORDERED: MethylPREDNISolone Sod Succ 125 MG Vial IV SCH (09:00)
[2024-05-31] MEDS ORDERED: Citalopram Hydrobromide 10 MG TAB PO SCH (13:00)
[2024-05-31 13:51] LABS: Base Excess Venous 3.2 mmol/L; Bicarbonate Venous 27.5 mmol/L (24.0-30.0); PCO2 Venous 32.4 mmHg (38-42); pH Blood Venous 7.52 (7.34-7.37)
--- NOTE | 2024-05-31 16:05 | NUR ---
MET WITH PATIENT AND DISCUSSED CODE STATUS. PATIENT INDICATED TO THE BEDSIDE RN THAT SHE WOULD NOT WANT INTUBATION. WE DISCUSSED CODE STATUS AND MEDICAL INTERVENTION. PATIENT ELECTED TO BE A DNR AND SELECTIVE INTERVENTION. SHE HAS BEEN WEARING THE BIPAP WITH ENCOURAGMENT AND BREAKS. DISCUSSED THESE DECISION WITH DR. MANJARREZ AND CODE STATUS WAS CHANGED. MORGAN LEFT OUTSIDE THE ROOM FOR PROVIDER SIGNITURE. CALLED PATIENTS DAUGHTER MAT AND HER SON BONNIE. NO ANSWER. RELAYED THIS TO THE BEDSIDE RN AND REQUESTED THAT THIS UPDATE BE PASSED ALONG IF THEY CALL WHEN I AM UNAVALIABLE.
[2024-05-31] MEDS ORDERED: Propranolol HCL 20 MG TAB PO SCH (16:30)
--- NOTE | 2024-05-31 18:35 | NUR ---
SHIFT SUMMARY PATIENT CONTINUES TO HAVE EPISODES OF SOB. PATIENT ENCOURAGED TO WEAR CPAP BUT PATIENT ONLY WILLING TO WEAR IT FOR SHORT PERIODS. CONTINUES TO HAVE EPISODES OF ANXIETY. PATIENT MEDICATED X1 FOR ANXIETY. DISCUSSED WITH PATIENT CURRENT SITUATION AND RELUCTANCE TO FOLLOW PLAN OF CARE WITH CPAP. PATIENT DOES NOT WANT TO WEAR O2 EITHER. DISCUSSED POTENTIAL RISKS WITH NOT WEARING CPAP AND O2. PATIENT STATES THAT SHE DOES NOT WANT TO BE INTUBATED EITHER. PALLIATIVE CARE NOTIFIED OF PATIENT'S DESIRES. PALLIATIVE CARE TO TALK TO FAMILY AND PATIENT REGARDING CODE STATUS. PATIENT CURRENTLY A FULL CODE.
[2024-05-31 19:26] VITALS: BP 127/77
[2024-06-01 03:36] VITALS: BP 178/94
[2024-06-01 03:59] VITALS: BP 134/73
--- NOTE | 2024-06-01 04:25 | NUR ---
A&OX4 W/FORGETFULNESS, DENIED PAIN THIS SHIFT, PREMEDICATED FOR CPAP WHICH WAS WORN FOR 5 1/2 HRS WHILE ASLEEP, MEDICATED 1X FOR HYPERTENSION (178/94) W/PRN HYDRALAZINE REASSESS WAS 134/73, MEDICATED 1X FOR C/O INDIGESTION, PT AWAKE WATCHING TV AT THIS TIME, CALL LIGHT IN REACH, WILL CONT TO MONITOR UNTIL REPORT GIVEN TO ONCOMING NURSE.
[2024-06-01 07:22] VITALS: BP 155/99
[2024-06-01] MEDS ORDERED: Sertraline HCl 100 MG Tab PO SCH (08:00)
[2024-06-01 15:03] VITALS: BP 131/69
[2024-06-01 19:10] VITALS: BP 117/65
[2024-06-02 04:51] VITALS: BP 138/73
--- NOTE | 2024-06-02 05:55 | NUR ---
A&OX4, VSS, INTERMITENT C/O SOB BUT O2 SATS REMAIN GREATER THAN 88, RELIEVED W/USE OF PERSONAL FAN, DENIED PAIN, SLEPT IN CHAIR DECLINED CPAP, AWAKE AT THIS TIME, CALL LIGHT IN REACH, ABLE TO MAKE NEEDS KNOWN, WILL CONT TO MONITOR UNTIL REPORT GIVEN TO ONCOMING NURSE.
[2024-06-02 07:07] VITALS: BP 134/76
--- NOTE | 2024-06-02 07:18 | NUR ---
ASSUMED CARE OF PATIENT. SLEEPING IN RECLINER DURING SHIFT CHANGE REPORT. PLANS FOR DC TODAY.
[2024-06-02] MEDS ORDERED: MethylPREDNISolone Sod Succ 40 MG VIAL IV SCH (08:00)
--- NOTE | 2024-06-02 13:55 | NUR ---
DISCHARGE SUMMARY: A&Ox3-4. PLEASANT AND COOPERATIVE WITH CARE. CALLS APPROPRIATELY AND IS ABLE TO ADVOCATE NEEDS EFFECTIVELY. SBA c FWW. CONTINENT OF BOWEL AND BLADDER. LBM TODAY. MEDS WHOLE WITH FLUIDS. TELE NSR. MEDICATIONS FAXED TO [facility]. INSTRUCTED TO FOLLOW-UP WITH PROVIDERS ORDERED. LEFT FLOOR AT WITH ALL BELONGINGS AND DISCHARGE PACKET @ 11:30AM ESCORTED BY [facility], PROVIDING TRANSPORTATION VIA [facility].
--- NOTE | 2024-06-02 15:23 | NUR ---
CLARIFIED PREDNISONE ORDERS c MAURO @ [facility].
== END 2024-06-02 11:27 | DRG 189 ==
LOC: ER 18:21 → MEDS 18:22
PROVIDERS: Family Medicine; Internal Medicine; Student in an Organized Health Care Education/Training Program; ADMIT Internal Medicine
DX: J96.01 Acute respiratory failure with hypoxia (principal); J44.1 Chronic obstructive pulmonary disease with (acute) exacerbation; Z66 Do not resuscitate; J96.02 Acute respiratory failure with hypercapnia; Z28.21 Immunization not carried out because of patient refusal; I10 Essential (primary) hypertension; F03.90 Unspecified dementia, unspecified severity, without behavioral disturbance, psychotic disturbance, mood disturbance, and anxiety; K21.9 Gastro-esophageal reflux disease without esophagitis; F41.9 Anxiety disorder, unspecified; E05.90 Thyrotoxicosis, unspecified without thyrotoxic crisis or storm; G25.0 Essential tremor; Z87.891 Personal history of nicotine dependence; Z79.899 Other long term (current) drug therapy
CPT/HCPCS: 36415; 71045; 71260; 80048; 80053; 80069; 82803; 83605; 83735; 83880; 84100; 84439; 84443; 84481; 84484; 85025; 85027; 87040; 93005; 93010; 93306; 93925; 94640; 94644; 94660; 94664; 94760; 94762; 96365; 96367; 96372; 96375; 96376; 97110; 97116; 97161; 97165; 97530; 99285-25; A9270; G0378; J0456; J0696; J1650; J1885; J1956; J2060; J2470; J2919; J7030; J7050; Q9967

== ENCOUNTER 2024-07-01 00:26 | Inpatient (IN) | payer MEDICARE, OTHER ==
[~2024-07-01] VITALS: Ht 157.5 cm; Wt 71.4 kg
[~2024-07-01 00:26] MED LIST changes: +HYDHCL25 PO
[2024-07-01] MEDS ORDERED: MethylPREDNISolone Sod Succ 125 MG Vial IV ONE (00:50)
[2024-07-01] MEDS ORDERED: Albuterol 2.5 MG/3 ML VIAL INH SCH (00:50)
[2024-07-01 01:01] LABS: BASOPHILS ABSOLUTE AUTO 0.04 K/mm3 (0.00-0.23); BASOPHILS PERCENT AUTO 0 % (0-2); EOSINOPHILS ABSOLUTE AUTO 0.12 K/mm3 (0.00-0.68); EOSINOPHILS PERCENT AUTO 1 % (0-6); Hematocrit 34.7 % (33.0-51.0); Hemoglobin 10.7 g/dL (11.5-16.0); IMMATURE GRAN ABSOLUTE AUTO 0.06 K/mm3 (0.00-0.10); IMMATURE GRAN PERCENT AUTO 1 % (0-1); LYMPHOCYTES ABSOLUTE AUTO 2.26 K/mm3 (0.84-5.20); LYMPHOCYTES PERCENT AUTO 24 % (21-46); MONOCYTES ABSOLUTE AUTO 1.12 K/mm3 (0.16-1.47); MONOCYTES PERCENT AUTO 12 % (4-13); Mean Corpuscular HGB 24.4 pg (26.0-34.0); Mean Corpuscular HGB Conc 30.8 g/dL (31.5-36.5); Mean Corpuscular Volume 79 fL (80-100); Mean Platelet Volume 9.2 fL (9.1-12.4); NEUTROPHILS ABSOLUTE AUTO 6.02 K/mm3 (1.96-9.15); NEUTROPHILS PERCENT AUTO 63 % (41-73); Platelet Count 332 K/mm3 (150-400); RDW Coefficient Variation 15.9 % (11.7-14.2); RDW Standard Deviation 46.3 fL (35.1-46.3); Red Blood Cell Count 4.38 M/mm3 (3.80-5.20); White Blood Cell Count 9.62 K/mm3 (4.00-11.30)
[2024-07-01 01:20] LABS: Albumin/Globulin Ratio 0.8 (0.8-1.8); Bilirubin, Total 0.3 mg/dL (0.1-1.0); Bun/Creatinine Ratio 25.8 (12.0-20.0); Calcium, Blood 8.6 mg/dL (8.5-10.1); Creatinine, Blood 0.77 mg/dL (0.40-1.00); Potassium, Blood 4.4 mmol/L (3.5-5.5)
[2024-07-01] MEDS ORDERED: Ipratropium/Albuterol SulF 2.5-0.5MG/3 ML Amp INH ONE (02:30)
[2024-07-01] MEDS ORDERED: Ipratropium/Albuterol SulF 2.5-0.5MG/3 ML Amp INH SCH (03:20)
[2024-07-01] MEDS ORDERED: FLU VACC TS2024-25(6MOS UP)/PF 45 MCG/0.5 ML SYRINGE IM ONE (03:20)
[2024-07-01] MEDS ORDERED: Magnesium Hydroxide Conc 10 ML UDC PO PRN (03:20)
[2024-07-01] MEDS ORDERED: Ondansetron 4 MG TAB PO PRN (03:20)
[2024-07-01] MEDS ORDERED: Melatonin 3 MG Tab PO PRN (03:20)
[2024-07-01] MEDS ORDERED: Mag Sulfate 1 GM/D5% 100ML 100 ML IV STA (03:27)
[2024-07-01 03:29] LABS: RETICULOCYTE ABSOLUTE 0.0397 M/mm3 (0.0200-0.1100); RETICULOCYTE COUNT PERCENT 0.92 % (0.50-2.50)
[2024-07-01 04:03] LABS: Magnesium, Blood 2.2 mg/dL (1.6-2.4); Percent Saturation 10.8 % (15.0-50.0); Thyroid Stimulating Hormone 2.93 uIU/mL (0.360-4.800)
[2024-07-01 04:21] LABS: Influenza A, PCR NEGATIVE (NEGATIVE); Influenza B, PCR NEGATIVE (NEGATIVE); Resp Syncytial Virus, PCR NEGATIVE (NEGATIVE); SARS-Cov-2 (COVID-19) PCR, MMC NEGATIVE (NEGATIVE)
[2024-07-01] MEDS ORDERED: Sennosides 8.6 MG Tab PO SCH (09:00)
[2024-07-01] MEDS ORDERED: Losartan Potassium 25 MG Tab PO SCH (09:00)
[2024-07-01] MEDS ORDERED: Memantine HCL 5 MG Tab PO SCH (09:00)
[2024-07-01] MEDS ORDERED: Enoxaparin 40 MG/0.4 ML SYR SC SCH (09:00)
[2024-07-01 14:09] VITALS: BP 128/79
[2024-07-01] MEDS ORDERED: PROP50 PO (16:14)
[2024-07-01] MEDS ORDERED: ALBU90OI INH (16:17)
[2024-07-01] MEDS ORDERED: GUAIFENESIN ER600 MG PO (16:19)
[2024-07-01] MEDS ORDERED: IPRAT-ALBUT 0.5-3 ML INH (16:20)
[2024-07-01] MEDS ORDERED: FLUT1DIS2 INH (16:34)
--- NOTE | 2024-07-01 16:37 | NUR ---
1400- PT TO MEDICAL FLOOR. PT IN STABLE CONDITION. PT ON 3L O2. NO DISTRESS NOTED. THIS RN SPOKE WITH [facility] MULTIPLE TIMES REGARDING PT'S MED REC. [facility] IS UNABLE TO FAX PT'S RECORD OR CURRENT EMAR DUE TO A "BROKEN COMPUTER." PT'S CURRENT EMAR WAS HAND WRITTEN AND SENT VIA FAX. THIS RN HAD TO CLARIFY MULTIPLE MEDS VIA PHONE. RN REQUESTED TO SPEAK TO A NURSE, BUT THEY ARE NOT AVAILABLE UNTIL TOMORROW. RN ASKED TO PLEASE HAVE THEM CALL WHEN THEY ARRIVE TOMRROW TO CLARIFY PT'S MED HX AND MEDICAL HX. RN SPOKE WITH FAISAL.
[2024-07-01 16:48] VITALS: BP 131/91
[2024-07-01] MEDS ORDERED: Mometasone/Formoterol MDI 100/5 mcg 13 GM INH SCH (16:50)
--- NOTE | 2024-07-01 18:11 | NUR ---
1800- PT GIVEN IS AND GIVEN INSTRUCTIONS AND DEMONSTRATION. PT VERBALIZED UNDERSTANDING.
--- NOTE | 2024-07-01 18:19 | NUR ---
SUMMARY- AAOX2-3. PT ON 3L. BL=RA. X1 SBA TO BSC. PT DENIES PAIN.
[2024-07-01 19:15] VITALS: BP 129/79
[2024-07-02 02:33] VITALS: BP 113/69
--- NOTE | 2024-07-02 03:04 | NUR ---
PRODUCTION COUNTER SUMMARY VSS. LUNG SOUNDS DIMINISHED TO AUSCULTATION. HOB ELEVATED. O2 PER NC AT 3L/MIN. ALERT AND OREINTED. UP WITH ASSIST TO BATHROOM, CONTINENT. BILAT SCD IN USE WHEN IN BED. VOICED SMOKER FOR SEVERAL YEARS BUT HAS QUIT. HAS BEEN RESTING QUIETLY WITH FEW INTERRUPTIONS. ABLE TO REPOSITION SELF IN BED WITHOUT ASSIST FOR COMFORT. CALL LIGHT IN REACH, RAILS UP X 2 AND BED IN LOW POSITION FOR SAFETY. WILL CONT TO MONITOR
[2024-07-02] MEDS ORDERED: MethylPREDNISolone Sod Succ 40 MG VIAL IV SCH (05:00)
[2024-07-02 08:14] VITALS: BP 145/88
[2024-07-02] MEDS ORDERED: GuaiFENesin 600 MG TabCR PO PRN (13:50)
[2024-07-02] MEDS ORDERED: Loperamide HCl 2 MG Cap PO PRN (13:55)
[2024-07-02] MEDS ORDERED: Acetaminophen 325 MG TABLET PO PRN (13:55)
[2024-07-02] MEDS ORDERED: HyDROXyzine HCl 25 MG Tab PO PRN (13:55)
[2024-07-02] MEDS ORDERED: Nystatin 100,000 Unit/GM CREAM 15 GM TOP PRN (14:35)
[2024-07-02 15:43] VITALS: BP 126/67
--- NOTE | 2024-07-02 18:08 | NUR ---
SUMMARY- AAOX2-3. X1 ASSIST TO BSC/BATHROOM. PT ON 3L. NO COMPLAINTS OF PAIN. CALM AND COOPERATIVE THIS SHIFT.
[2024-07-02] MEDS ORDERED: Atorvastatin 40 MG Tab PO SCH (21:00)
[2024-07-02 21:06] VITALS: BP 120/77
[2024-07-03 03:10] VITALS: BP 137/66
--- NOTE | 2024-07-03 03:52 | NUR ---
SHIFT SUMMARY ADMITTED FOR RESPIRATORY FAILURE/COPD. FULL CODE. PLAN IS FOR STEROIDS AND RT TREATMENTS. PALLIATIVE CARE IS CONSULTED. REGULAR DIET. A&O X2-3. 3 LPM O2 HERE, ON RA @ BASELINE. STANDBY TO INDEPENDENT TO THE [facility]. SHE LIVES AT [facility].
[2024-07-03] MEDS ORDERED: Pantoprazole Sodium 40 MG Tab PO SCH (06:00)
[2024-07-03 07:12] VITALS: BP 120/68
[2024-07-03] MEDS ORDERED: Cyanocobalamin/Fa/Pyridoxine 1 Tablet PO SCH (09:00)
[2024-07-03] MEDS ORDERED: Metoprolol Succinate 25 MG TABCR PO SCH (09:00)
[2024-07-03] MEDS ORDERED: Ferrous Gluconate 325 MG Tablet PO SCH (09:00)
[2024-07-03] MEDS ORDERED: Sertraline HCl 100 MG Tab PO SCH (09:00)
[2024-07-03] MEDS ORDERED: Primidone 50 MG Tab PO SCH (11:00)
[2024-07-03 16:40] VITALS: BP 114/67
[2024-07-03] MEDS ORDERED: PRED5 PO (17:37)
--- NOTE | 2024-07-03 17:38 | NUR ---
MORE ALERT AND ORIENTED X3 THIS AFTERNOON, WORKED WITH PT, LESS SOB WITH AMBULATION, CALL LIGHT WITH IN REACH, POSSIBLE READMIT TO [facility] TOMORROW, CALL LIGHT WITH IN REACH
[2024-07-03 20:25] VITALS: BP 123/65
[2024-07-04 02:42] VITALS: BP 113/63
--- NOTE | 2024-07-04 04:24 | NUR ---
SHIFT SUMMARY ADMITTED FOR RESPIRATORY FAILURE/COPD. FULL CODE. PLAN IS FOR IV STEROIDS AND RT TX'S. PALLIATIVE CARE IS CONSULTED. INDEPENDENT IN ROOM. SHE IS ON 3 LPM O2, BUT SHE DESATS WITH EXERTION. SHE DOES RECOVER, BUT IT IS SLOW. REGULAR DIET. A&O X3. SHE [facility] AT [facility]. HX: COPD, TREMORS. SHE IS ON RA AT HOME.
[2024-07-04 07:33] VITALS: BP 144/67
[2024-07-04] MEDS ORDERED: PredniSONE 20 MG Tab PO SCH (09:00)
[2024-07-04] MEDS ORDERED: PROP50 PO (15:20)
[2024-07-04] MEDS ORDERED: FERSU300 PO (15:21)
[2024-07-04] MEDS ORDERED: Folbee Plus Tabl5 MG PO (15:22)
[2024-07-04] MEDS ORDERED: SENN187 PO (15:23)
[2024-07-04] MEDS ORDERED: Primidone50 MG PO (15:23)
[2024-07-04] MEDS ORDERED: PRED20 PO (15:24)
--- NOTE | 2024-07-04 15:36 | NUR ---
PATIENT DISCHARGED AND PICKED UP VIA [facility]. DISCHARGE PACKET PLACED WITH CASE MANAGEMENT PACKET AND SENT WITH PATIENT. BELONGINGS GATHERED, RETURENED. IV REMOVED BY LINING PRESSER. HOME O2 DROPPED OFF AND SENT WITH PATIENT.
--- NOTE | 2024-07-04 16:23 | NUR ---
MET WITH PATIENT AND REVIEWED POLST. PATIENT CONFIRMED THAT THE POST UPHELD HER WISHES AND CODE STATUS CHANGED TO DNR
== END 2024-07-04 16:20 | disposition home or self-care (01) | DRG 189 ==
LOC: ER 00:26 → ERHOLD 03:16 → MEDS 03:16
PROVIDERS: Emergency Medicine; Family Medicine; ADMIT Internal Medicine
DX: J96.01 Acute respiratory failure with hypoxia (principal); J45.901 Unspecified asthma with (acute) exacerbation; J44.1 Chronic obstructive pulmonary disease with (acute) exacerbation; F41.9 Anxiety disorder, unspecified; I10 Essential (primary) hypertension; Z66 Do not resuscitate; F03.90 Unspecified dementia, unspecified severity, without behavioral disturbance, psychotic disturbance, mood disturbance, and anxiety; K21.9 Gastro-esophageal reflux disease without esophagitis; D63.8 Anemia in other chronic diseases classified elsewhere; E03.9 Hypothyroidism, unspecified; Z79.52 Long term (current) use of systemic steroids; Z79.899 Other long term (current) drug therapy; Z79.891 Long term (current) use of opiate analgesic; Z79.51 Long term (current) use of inhaled steroids; Z87.891 Personal history of nicotine dependence; Z99.81 Dependence on supplemental oxygen; Z28.21 Immunization not carried out because of patient refusal
CPT/HCPCS: 0241U; 71045; 80053; 82607; 82728; 82746; 83540; 83550; 83735; 83880; 84443; 84484; 85025; 85045; 93005; 93010; 94640; 94644; 94664; 94761; 94762; 96374; 97116; 97161; 99285-25; A9270; J1650; J2919; J3475; J7512

== ENCOUNTER 2024-09-30 08:47 | Inpatient (IN) | payer MEDICARE, OTHER ==
[~2024-09-30] VITALS: Ht 157.5 cm; Wt 76.4 kg
[~2024-09-30 08:47] MED LIST changes: +FERSU300 PO; +FLUT1DIS2 INH; +Folbee Plus Tabl5 MG PO; +GUAIFENESIN ER600 MG PO; +IPRAT-ALBUT 0.5-3 ML INH; +PROP50 PO; +Primidone50 MG PO; +SENN187 PO
[2024-09-30] MEDS ORDERED: MethylPREDNISolone Sod Succ 125 MG Vial IV ONE (09:25)
[2024-09-30] MEDS ORDERED: Ipratropium/Albuterol SulF 2.5-0.5MG/3 ML Amp INH ONE ×2 (09:30→11:45)
[2024-09-30] MEDS ORDERED: Azithromycin 250 MG Tab PO ONE (09:30)
[2024-09-30 09:57] LABS: BASOPHILS ABSOLUTE AUTO 0.07 K/mm3 (0.00-0.23); BASOPHILS PERCENT AUTO 1 % (0-2); EOSINOPHILS PERCENT AUTO 3 % (0-6); Hematocrit 36.7 % (33.0-51.0); Hemoglobin 11.2 g/dL (11.5-16.0); IMMATURE GRAN ABSOLUTE AUTO 0.07 K/mm3 (0.00-0.10); IMMATURE GRAN PERCENT AUTO 1 % (0-1); LYMPHOCYTES ABSOLUTE AUTO 2.91 K/mm3 (0.84-5.20); LYMPHOCYTES PERCENT AUTO 29 % (21-46); MONOCYTES ABSOLUTE AUTO 0.87 K/mm3 (0.16-1.47); MONOCYTES PERCENT AUTO 9 % (4-13); Mean Corpuscular HGB 25.4 pg (26.0-34.0); Mean Corpuscular HGB Conc 30.5 g/dL (31.5-36.5); Mean Corpuscular Volume 83 fL (80-100); Mean Platelet Volume 10.5 fL (9.1-12.4); NEUTROPHILS PERCENT AUTO 58 % (41-73); Platelet Count 336 K/mm3 (150-400); RDW Standard Deviation 54.3 fL (35.1-46.3); Red Blood Cell Count 4.41 M/mm3 (3.80-5.20); White Blood Cell Count 9.92 K/mm3 (4.00-11.30)
[2024-09-30 10:24] LABS: Albumin, Blood 3.2 g/dL (3.4-5.0); Albumin/Globulin Ratio 0.7 (0.8-1.8); Bilirubin, Total 0.3 mg/dL (0.1-1.0); Bun/Creatinine Ratio 23.9 (12.0-20.0); Calcium, Blood 8.8 mg/dL (8.5-10.1); Creatinine, Blood 0.8 mg/dL (0.40-1.00); Globulin, Blood 4.5 g/dL (2.2-4.0); Potassium, Blood 4.1 mmol/L (3.5-5.5); Total Protein, Blood 7.7 g/dL (6.4-8.2)
[2024-09-30] MEDS ORDERED: NS 1,000 ML IV SCH (15:55)
[2024-09-30] MEDS ORDERED: Albuterol 2.5 MG/3 ML VIAL INH ONE (16:00)
[2024-09-30] MEDS ORDERED: Magnesium Sulf 2 GM/Water 50ML 50 ML IV ONE (16:15)
[2024-09-30] MEDS ORDERED: Albuterol 2.5 MG/3 ML VIAL INH PRN (19:10)
[2024-09-30] MEDS ORDERED: Ondansetron HCl 2 MG / ML 2ML Vial IV PRN (19:15)
[2024-09-30] MEDS ORDERED: Ipratropium/Albuterol SulF 2.5-0.5MG/3 ML Amp INH SCH (19:15)
[2024-09-30] MEDS ORDERED: FERROUS GLUCON324 M7 PO (20:00)
[2024-09-30] MEDS ORDERED: FOLI1 PO (20:01)
[2024-09-30 20:31] VITALS: BP 129/76
[2024-09-30] MEDS ORDERED: Primidone 50 MG Tab PO SCH (21:00)
[2024-09-30] MEDS ORDERED: Memantine HCL 5 MG Tab PO SCH (21:00)
[2024-09-30] MEDS ORDERED: Lactobacil 2-S.Thermo-Bifido 1 1 Cap PO SCH (21:00)
[2024-09-30] MEDS ORDERED: MethylPREDNISolone Sod Succ 125 MG Vial IV SCH (21:00)
--- NOTE | 2024-09-30 23:09 | NUR ---
2030 RECEIVED PT TO RM 324 FROM ER. PT ADMITTED FOR COPD EXAC FROM [facility]. PLEASANT AND CO-OP WITH CARE. ABLE TO ANSWER MOST QUESTIONS APPROPRIATELY. MED REC OBTAINED FROM [facility] AND UPDATED ON CHART. ABLE TO TAKE MEDS WHOLE WITH H2O. ON 2L O2 AT THIS TIME. PT REPORTS BEING ABLE TO AMBULATE INDEPENDENTLY, BUT DOES HAVE A FWW AVAILABLE AT HOME IF NEEDED. REQUESTED A FAN; GIVEN BY RN. DENIED FURTHER NEEDS AT THIS TIME. CALL LT IN REACH. BED ALARM ON FOR SAFETY.
[2024-10-01 03:28] VITALS: BP 147/81
[2024-10-01] MEDS ORDERED: Acetaminophen 325 MG TABLET PO PRN (03:55)
[2024-10-01 05:38] LABS: Hematocrit 36.6 % (33.0-51.0); Hemoglobin 11.4 g/dL (11.5-16.0); Mean Corpuscular HGB 25.5 pg (26.0-34.0); Mean Corpuscular HGB Conc 31.1 g/dL (31.5-36.5); Mean Corpuscular Volume 82 fL (80-100); Mean Platelet Volume 10.4 fL (9.1-12.4); Platelet Count 296 K/mm3 (150-400); RDW Coefficient Variation 17.6 % (11.7-14.2); RDW Standard Deviation 52.5 fL (35.1-46.3); Red Blood Cell Count 4.47 M/mm3 (3.80-5.20); White Blood Cell Count 11.02 K/mm3 (4.00-11.30)
[2024-10-01 05:43] LABS: Bun/Creatinine Ratio 43.5 (12.0-20.0); Calcium, Blood 8.3 mg/dL (8.5-10.1); Creatinine, Blood 0.64 mg/dL (0.40-1.00); Potassium, Blood 4.4 mmol/L (3.5-5.5)
--- NOTE | 2024-10-01 05:53 | NUR ---
SHIFT SUMMARY: Pt is admitted for COPD exacerbation and is a full code. Is alert to self and able to make needs known. ADLs have been 1p through shift but did not get out of bed. Was given PRN medications to help manage pain.
[2024-10-01] MEDS ORDERED: Pantoprazole Sodium 40 MG Tab PO SCH (06:00)
[2024-10-01 07:20] VITALS: BP 127/60
[2024-10-01] MEDS ORDERED: Enoxaparin 40 MG/0.4 ML SYR SC SCH (09:00)
[2024-10-01] MEDS ORDERED: Losartan Potassium 25 MG Tab PO SCH (09:00)
[2024-10-01] MEDS ORDERED: Azithromycin 500 MG in NS 250 ML IV SCH (09:00)
[2024-10-01] MEDS ORDERED: Sertraline HCl 50 MG Tab PO SCH (09:00)
[2024-10-01 16:13] VITALS: BP 141/79
--- NOTE | 2024-10-01 18:54 | NUR ---
SHIFT SUMMARY: PATIENT AOX3. PLEASANT MOOD, COOPERATIVE. 1 ASSST WITH FWW, WEAK/SLOW GAIT. PATIENT DENIES ANY PAIN OR PRESSURE. USES CALL LIGHT APPROPRIATELY. SHE HAS HAD A GOOD APPETITE TODAY. CURRENTLY RESTING WITH HOB ELEVATED AND WATCHING TV. CALL LIGHT WITHIN REACH.
[2024-10-01 19:28] VITALS: BP 139/69
[2024-10-02 05:14] VITALS: BP 151/86
--- NOTE | 2024-10-02 05:52 | NUR ---
SHIFT SUMMARY NOC. PT ADMIT FOR COPD EXACERBATION. PT ON 1 L VIA N/C. SOB NOTED ON EXERTION, PT RECOVERS WITH REST. PT A/O X3, BED ALARM SET FOR SAFETY. PT AMBULATES WITH NURSE ASSIST, FWW AND GAIT BELT. PT VOIDING URINE AND TOLERATING DIET ORDERED. CALL LIGHT IN REACH.
[2024-10-02 07:36] VITALS: BP 138/80
[2024-10-02] MEDS ORDERED: NS 250 ML IV PRN (08:55)
[2024-10-02 15:20] VITALS: BP 123/77
--- NOTE | 2024-10-02 18:05 | NUR ---
SHIFT SUMMARY: PATIENT AOX3, PLEASANT AND COOPERATIVE TODAY. AMBULATES TO THE BATHROOM WITH WALKER AND STANDBY ASSIST, AND IS SOMETIMES INCONTINENT. PULL-UP BRIEF IN PLACE. PATIENT HAS DENIED ANY PAIN TODAY AND HAS NOT REQUESTED PAIN MEDICATION. NO ACUTE EVENTS. PATIENT MAINTAINING OXYGEN SATURATION >92% ON 1L O2, BUT COMPLAINS OF SHORTNESS OF BREATH ON AMBULATION. PATIENT SITTING UP IN BED EATING DINNER, CALL LIGHT WITHIN REACH.
[2024-10-02 19:41] VITALS: BP 151/89
[2024-10-03 04:16] VITALS: BP 134/70
--- NOTE | 2024-10-03 05:36 | NUR ---
SHIFT SUMMARY ASSUMED CARE 1245. REPORT RECEIVED FROM SUSHMA LIN. NO ACUTE EVENTS DURING THIS SHIFT. BED AT THE LOWEST POSITION, CALL LIGHT W/I REACH. PT IS A/O X4, ABLE TO MAKE HER NEEDS KNOWN. 1L CHRONIC O2 VIA NASAL CANNULA. SAT'S> 96%. NO COMPLAINTS OFFERED.
[2024-10-03 05:58] LABS: BASOPHILS ABSOLUTE AUTO 0.01 K/mm3 (0.00-0.23); BASOPHILS PERCENT AUTO 0 % (0-2); EOSINOPHILS PERCENT AUTO 0 % (0-6); Hematocrit 34.6 % (33.0-51.0); Hemoglobin 10.7 g/dL (11.5-16.0); IMMATURE GRAN ABSOLUTE AUTO 0.08 K/mm3 (0.00-0.10); IMMATURE GRAN PERCENT AUTO 1 % (0-1); LYMPHOCYTES ABSOLUTE AUTO 0.92 K/mm3 (0.84-5.20); LYMPHOCYTES PERCENT AUTO 8 % (21-46); MONOCYTES ABSOLUTE AUTO 0.59 K/mm3 (0.16-1.47); MONOCYTES PERCENT AUTO 5 % (4-13); Mean Corpuscular HGB 25.7 pg (26.0-34.0); Mean Corpuscular HGB Conc 30.9 g/dL (31.5-36.5); Mean Corpuscular Volume 83 fL (80-100); Mean Platelet Volume 11.1 fL (9.1-12.4); NEUTROPHILS ABSOLUTE AUTO 10.25 K/mm3 (1.96-9.15); NEUTROPHILS PERCENT AUTO 86 % (41-73); Platelet Count 279 K/mm3 (150-400); RDW Coefficient Variation 18.1 % (11.7-14.2); RDW Standard Deviation 54.7 fL (35.1-46.3); Red Blood Cell Count 4.17 M/mm3 (3.80-5.20); White Blood Cell Count 11.85 K/mm3 (4.00-11.30)
[2024-10-03 06:19] LABS: Bun/Creatinine Ratio 33.7 (12.0-20.0); Creatinine, Blood 0.77 mg/dL (0.40-1.00); Potassium, Blood 4.6 mmol/L (3.5-5.5)
[2024-10-03 07:34] VITALS: BP 144/80
[2024-10-03 16:10] VITALS: BP 128/80
--- NOTE | 2024-10-03 18:41 | NUR ---
SUMMARY- AAOX3-4. SBA. PT ON 1L VIA NC. NO CHANGES THIS SHIFT. NO ACUTE EVENTS. GOOD APPETITE. PT DENIES PAIN THIS SHIFT. DYPNEA WITH EXERTION NOTED.
[2024-10-03 19:05] VITALS: BP 139/81
[2024-10-04 02:52] VITALS: BP 124/72
--- NOTE | 2024-10-04 05:03 | NUR ---
PATIENT MADE NIL FRESH COMPLAINT, MEDICATED PER EMAR , CALL LIGHT ANSWERED ,PATIENT HELP TO BATHROOM, SLEPT WELL BED LOWEST POSITION CALL LIGHT IN REACH.
[2024-10-04 07:55] VITALS: BP 152/82
--- NOTE | 2024-10-04 13:56 | NUR ---
PT TRANSFERED BACK TO [facility] @4503. [facility] PICKED PT UP AND HER PERSONAL BELONGINGS. NO DISTRESS NOTED. UNABLE TO CONTACT FAMILY PHONE NUMBERS WOULD NOT ALLOW ARTIFICIAL INSEMINATION TECHNICIAN OR VOICEMAIL. NO DISTRESS NOTED PT HAS BEEN COOPERATIVE IF CARE AND DID WELL ONE PERSON WITH WALKER.
== END 2024-10-04 13:45 | disposition home or self-care (01) | DRG 189 ==
LOC: ER 08:47 → MEDS 08:48
PROVIDERS: Family Medicine; Nurse Practitioner Acute Care; Student in an Organized Health Care Education/Training Program; ADMIT Internal Medicine
DX: J96.01 Acute respiratory failure with hypoxia (principal); J44.1 Chronic obstructive pulmonary disease with (acute) exacerbation; F03.94 Unspecified dementia, unspecified severity, with anxiety; F41.9 Anxiety disorder, unspecified; D63.8 Anemia in other chronic diseases classified elsewhere; K21.9 Gastro-esophageal reflux disease without esophagitis; E03.9 Hypothyroidism, unspecified; I10 Essential (primary) hypertension; M25.512 Pain in left shoulder; E05.90 Thyrotoxicosis, unspecified without thyrotoxic crisis or storm; Z99.81 Dependence on supplemental oxygen
CPT/HCPCS: 36415; 71046; 80048; 80053; 82040; 82330; 84484; 85025; 85027; 93005; 93010; 94640; 94664; 94760; 94762; 96365; 96375; 99285-25; A6590; A9270; G0378; J0456; J1650; J2405; J2919; J3475; J7030; J7050

== ENCOUNTER 2024-12-23 01:10 | Emergency (ER) | payer MEDICARE, OTHER ==
[~2024-12-23] VITALS: Ht 157.5 cm; Wt 74.8 kg
[~2024-12-23 01:10] MED LIST changes: +CEPH500 PO; +FERROUS GLUCON324 M7 PO; +FOLI1 PO
[2024-12-23] MEDS ORDERED: Ipratropium/Albuterol SulF 2.5-0.5MG/3 ML Amp INH ONE (01:30)
[2024-12-23 02:21] LABS: BASOPHILS ABSOLUTE AUTO 0.03 K/mm3 (0.00-0.23); BASOPHILS PERCENT AUTO 0 % (0-2); EOSINOPHILS ABSOLUTE AUTO 0.21 K/mm3 (0.00-0.68); EOSINOPHILS PERCENT AUTO 2 % (0-6); Hematocrit 37.6 % (33.0-51.0); Hemoglobin 12.1 g/dL (11.5-16.0); IMMATURE GRAN ABSOLUTE AUTO 0.05 K/mm3 (0.00-0.10); IMMATURE GRAN PERCENT AUTO 1 % (0-1); LYMPHOCYTES ABSOLUTE AUTO 2.75 K/mm3 (0.84-5.20); LYMPHOCYTES PERCENT AUTO 31 % (21-46); MONOCYTES ABSOLUTE AUTO 0.91 K/mm3 (0.16-1.47); MONOCYTES PERCENT AUTO 10 % (4-13); Mean Corpuscular HGB Conc 32.2 g/dL (31.5-36.5); Mean Corpuscular Volume 85 fL (80-100); NEUTROPHILS ABSOLUTE AUTO 5.08 K/mm3 (1.96-9.15); NEUTROPHILS PERCENT AUTO 56 % (41-73); NRBC ABSOLUTE 0.00 K/mm3 (0.00-0.02); NRBC Auto 0.0 /100 WBC (0.0-0.2); Platelet Count 228 K/mm3 (150-400); RDW Coefficient Variation 16.8 % (11.7-14.2); RDW Standard Deviation 51.8 fL (35.1-46.3)
[2024-12-23 02:39] LABS: Alanine Aminotransfer (ALT/SGP 18.0 U/L (12-78); Albumin, Blood 3.5 g/dL (3.4-5.0); Albumin/Globulin Ratio 0.9 (0.8-1.8); Anion Gap 9.0 mmol/L (3-11); Aspartate Aminotrans (AST/SGOT 17.0 U/L (12-37); Bilirubin, Total 0.5 mg/dL (0.1-1.0); Blood Urea Nitrogen 15.0 mg/dL (8-24); CO2, Blood 28.0 mmol/L (21-32); Calcium, Blood 8.4 mg/dL (8.5-10.1); Chloride, Blood 102.0 mmol/L (98-108); Creatinine, Blood 0.91 mg/dL (0.40-1.00); Globulin, Blood 3.8 g/dL (2.2-4.0); Glucose, Blood 96.0 mg/dL (70-99); Potassium, Blood 4.0 mmol/L (3.5-5.5); Sodium, Blood 135.0 mmol/L (136-145); Total Protein, Blood 7.3 g/dL (6.4-8.2)
[2024-12-23] MEDS ORDERED: PRED20 PO (03:06)
== END 2024-12-23 03:38 | disposition home or self-care (01) ==
LOC: ER 01:10
PROVIDERS: Student in an Organized Health Care Education/Training Program
DX: J44.1 Chronic obstructive pulmonary disease with (acute) exacerbation (principal); I12.9 Hypertensive chronic kidney disease with stage 1 through stage 4 chronic kidney disease, or unspecified chronic kidney disease; K21.9 Gastro-esophageal reflux disease without esophagitis; E03.9 Hypothyroidism, unspecified; I48.91 Unspecified atrial fibrillation; Z86.59 Personal history of other mental and behavioral disorders; Z87.891 Personal history of nicotine dependence; Z79.899 Other long term (current) drug therapy; Z79.52 Long term (current) use of systemic steroids; Z79.51 Long term (current) use of inhaled steroids
CPT/HCPCS: 71045; 80053; 84484; 85025; 93005; 93010; 99285-25